=== PATIENT | male | born 1990 | race Caucasian/White ===

== ENCOUNTER 2022-05-08 14:59 | Inpatient (IN) | payer MEDICAID, SELFPAY ==
[2022-05-08 15:01] VITALS: BP 133/106; PULSE 95; RESP 18; TEMP 35.7; O2SAT 96; BMI 21.4
[2022-05-08 15:26] LABS: Absolute Lymphocyte Count 2.39 X10^3/uL (0.83-4.51); Absolute Neutrophil Count 3.8 X10^3/uL (2.0-7.7); Basophil% 1.5 % (0-1); Eosinophil# 0.06 X10^3/uL; Eosinophils% 0.9 % (0-5); Hematocrit 35.9 % (40-54); Hemoglobin 12.2 g/dL (13.0-16.5); Lymphocyte # 2.39 X10^3/ul (0.83-4.51); Lymphocyte % 34.8 % (19-41); Mean Corpuscular Hgb 37.4 pg (27.0-32.0); Mean Corpuscular Volume 110.1 fL (80-94); Mean Platelet Vol. 9.5 fl (6.2-12.0); Monocyte# 0.45 X10^3/uL; Monocyte% 6.6 % (0-10); NRBC Flagged by Analyzer 0 % (0-5); Neutrophil # 3.82 X10^3/uL (2.7-7.7); Neutrophil % 55.6 % (47-70); POSITIVE MORPHOLOGY YES; Platelet Count 170 K/mm3 (150-450); RBC Distribution Width CV 16.6 % (11.6-14.6); RBC Distribution Width SD 67.7 fl (35.1-43.9); Red Blood Count 3.26 M/mm3 (4.6-6.2); White Blood Count 6.9 K/mm3 (4.4-11.0)
[2022-05-08 15:28] LABS: Differential Indicated SCAN CRITERIA MET
--- NOTE | 2022-05-08 15:34 | EDS_ITS ---
HPI History of Present Illness Chief Complaint: ETOH Intox Narrative Narrative: 30-year-old male with history of cirrhosis and alcohol abuse presenting for EtOH detox. Patient states that he was seen about a week and a half ago and he had a CT scan which showed ascites but not enough for paracentesis which she had previously performed about 2 weeks ago. Patient states that he continues to drink and varying levels of alcohol. Sometimes a few beers. Sometimes at the fifth of whiskey. There is a lot of variability of pain. He states that sometimes present he feels nearly satiety. Patient states he is not vomiting. He states his abdomen is distended it is about where it was when he last had his labs and CAT scan. This was at [facility]. He states he previously was seen at [place] and went to [facility]. He went for a second opinion. He states that his. Bilirubin and liver function enzymes have been going down previously. He has a history of pancreatitis as well. He recently had an ultrasound of the right upper quadrant which showed some gallstones but no evidence of cholecystitis. Patient does state however he is still on ciprofloxacin which they gave him at his last paracentesis. He states he never received his lab work for the paracentesis but they did send this to the lab. Patient also [facility] He has been told he will get a referral to a GI specialist/home care chaplain in [place] but he is awaiting this. [facility] Home Medications NK 05/08/22 [History Last Taken Unknown] Allergy/AdvReac Type Severity Reaction Status Date / Time Penicillins [PCN] Allergy Hives Verified 05/08/22 15:01 Social History Smoking Status: Current every day smoker tobacco type: cigarettes ROS ROS ED Constitutional Constitutional ED: Denies chills or fever(s) Eyes Eyes: Denies change in vision or diplopia ENT ENT ED: Denies rhinorrhea or sore throat Cardiovascular Cardiovascular: Denies chest pain or palpitations Respiratory/Chest Respiratory/Chest: Denies cough or dyspnea Gastrointestinal Gastrointestinal: Reports abdominal pain, constipation and nausea; Denies melena Genitourinary Genitourinary ED: Denies dysuria Musculoskeletal Musculoskeletal: Denies arthralgias or back pain Integumentary Denies abscess or Abrasions Neurologic Neurologic: Denies headache(s) or paresthesias Psychiatric Psychiatric: Denies anxiety or depression EXAM Physical Exam Const Vital Signs: 05/08/22 15:01 Temperature 96.2 F L Temperature Source Temporal Pulse Rate 95 Respiratory Rate 18 Blood Pressure 133/106 H Blood Pressure Mean 115 Pulse Ox 96 Oxygen Delivery Method Room Air Positive well nourished General Appearance ED: NAD; Negative for pallor HEENT Reports moist mucous membranes atraumatic Eyes PERRL and EOMs intact bilaterally General Eye ED: Yes scleral icterus Neck no lymphadenopathy Resp normal respiratory effort and clear to auscultation bilaterally Auscultation: Negative for rales, rhonchi or wheezes Cardio regular rate and regular rhythm GI Inspection: abdominal distention Palpation: Negative for guarding, rigid or mass Neuro oriented x3 and CN's II-XII intact bilaterally Psych mental status grossly normal Skin General Skin Exam: jaundice; Negative for pallor MDM MDM MDM Narrative Medical decision making narrative: Review of the medical record on [facility] shows that the patient did get seen 05/05/2022 at [facility]. The CT of the abdomen with IV contrast is below. It shows cirrhosis and underlying portal hypertension. It showed moderate ascites with no significant interval changes from previous CT on 04/26/2022. PT and INR on 05/05/2022 14.3/1.10. PTT 28.0. CBC showed a white blood cell count of 3.9, hemoglobin 12.3, hematocrit 5.8, platelets 136 and then he came back. CMP showed a total bilirubin of 2.3, direct bilirubin 1.2 AST 60, alkaline phosphatase 188. Lipase 87 ALT within normal limits. Sodium 139, potassium 3.4, chloride 103, he has calcium 8.2, total protein 5.7, albumin 2.5. Creatinine 0.76. BUN less than 5. Magnesium is 1.7. Today patient's blood work shows his white blood cell count of 6.9. Hemoglobin 12.2. Hematocrit 35.9. Platelets 170. Renal function is normal. Electrolytes are normal. Lipase slightly elevated at 497. Bilirubin slightly elevated 1.5, AST 67, ALT 35, alkaline phosphatase 207. INR within normal limits. This appears to be improving. EtOH 342. Urine tox screen positive for cannabinoids. CT of the abdomen pelvis shows ascites and some fluid around the gallbladder. Patient does not have specific tenderness here. He is more complaining of abdominal distention. I do not think he has acute cholecystitis. His LFTs are normalizing and his white count is normal. Patient still request to be admitted for detox. I spoke with the hospitalist for admission. Impression: 1. EtOH abuse 2. Presentation for EtOH detox 3. Elevated lipase 4. History of cirrhosis Lab Data Attestation: I reviewed the patient's lab results. Labs: Laboratory Results - last 24 hr 05/08/22 05/08/22 05/08/22 15:15 15:15 15:15 WBC 6.9 RBC 3.26 L Hgb 12.2 L Hct 35.9 L MCV 110.1 H MCH 37.4 H MCHC 34.0 RDW Std Deviation 67.7 H RDW Coeff of Yossi 16.6 H Plt Count 170 MPV 9.5 Immature Gran % (Auto) 0.600 Neut % (Auto) 55.6 Lymph % (Auto) 34.8 [place] % (Auto) 6.6 Eos % (Auto) 0.9 Baso % (Auto) 1.5 H Absolute Neuts (auto) 3.8 Absolute Lymphs (auto) 2.39 Nucleated RBC % 0 Platelet Estimate ADEQUATE RBC Morphology N CHROM Anisocytosis 2+ Macrocytosis 2+ PT INR Sodium 140 Potassium 4.2 Chloride 102 Carbon Dioxide 31.0 Anion Gap 7 BUN 4 L Creatinine 0.68 L Estim Creat Clear Calc 135.81 Est GFR (MDRD) Af Amer 171 Est GFR (MDRD) Non-Af 141 BUN/Creatinine Ratio 5.8 L Glucose 106 Calcium 8.3 L Total Bilirubin 1.50 H AST 67 H ALT 35 Alkaline Phosphatase 207 H Total Protein 6.6 Albumin 2.6 L Globulin 4.0 Albumin/Globulin Ratio 0.6 L Lipase Urine Opiates Screen Urine Methadone Screen Ur Barbiturates Screen Ur Phencyclidine Scrn Ur Amphetamines Screen MDMA (Ecstasy) Screen U Benzodiazepines Scrn Urine Cocaine Screen U Cannabinoids Screen Ur Drug Screen Comment Ethyl Alcohol 342.0 H* 05/08/22 05/08/22 05/08/22 15:15 15:35 15:39 WBC RBC Hgb Hct MCV MCH MCHC RDW Std Deviation RDW Coeff of Yossi Plt Count MPV Immature Gran % (Auto) Neut % (Auto) Lymph % (Auto) [place] % (Auto) Eos % (Auto) Baso % (Auto) Absolute Neuts (auto) Absolute Lymphs (auto) Nucleated RBC % Platelet Estimate RBC Morphology Anisocytosis Macrocytosis PT 13.0 INR 1.0 Sodium Potassium Chloride Carbon Dioxide Anion Gap BUN Creatinine Estim Creat Clear Calc Est GFR (MDRD) Af Amer Est GFR (MDRD) Non-Af BUN/Creatinine Ratio Glucose Calcium Total Bilirubin AST ALT Alkaline Phosphatase Total Protein Albumin Globulin Albumin/Globulin Ratio Lipase 497 H Urine Opiates Screen NEGATIVE Urine Methadone Screen NEGATIVE Ur Barbiturates Screen NEGATIVE Ur Phencyclidine Scrn NEGATIVE Ur Amphetamines Screen NEGATIVE MDMA (Ecstasy) Screen NEGATIVE U Benzodiazepines Scrn NEGATIVE Urine Cocaine Screen NEGATIVE U Cannabinoids Screen POSITIVE H Ur Drug Screen Comment Ethyl Alcohol Radiography Diagnostic Testing: Clinical Impression(s) from Imaging Studies Abdomen/Pelvis CT 05/08/22 15:34 IMPRESSION: (NOT LISTED IN ORDER OF SIGNIFICANCE) No visible gallstones. However, there is gallbladder wall thickening and pericholecystic fluid this may be related to ascites. Hepatic cirrhosis. Ascites. Other findings as above. Electronically Signed: Atul Blood MD at 16:00 EDT , CT ABDOMEN/PELVIS WITH CONTRAST CT ABDOMEN AND PELVIS WITH IV CONTRAST - 05/05/2022 COMPARISON: CT abdomen and pelvis with IV contrast dated 04/26/2022 and 02/16/2022. HISTORY: Abdominal pain, acute, nonlocalized. TECHNIQUE: Helical imaging was performed from the hemidiaphragms through the pubic symphysis after the administration of nonionic intravenous contrast (75 mL Omnipaque 350). No oral contrast was given. Multiplanar reconstructions were created. Dose reduction techniques were achieved by using: automated exposure control and/or adjustment of mA and/or kV according to patient size and/or use of iterative reconstruction technique. FINDINGS: CT ABDOMEN: The heart is normal in size. The abdominal aorta is normal in caliber. The lung bases are clear. No pleural effusion is identified. There is a moderate amount of ascites, which is not significantly changed. Again seen is asymmetric enlargement of the lateral segment of the left lobe of the liver and caudate lobe and subtle nodular surface contour of the liver. Liver is normal in size. Collateral vessels are also again noted in the gastrohepatic ligament and around the distal esophagus. The main portal vein and splenic vein are normal in caliber and patent. The spleen is borderline enlarged, measuring 4.1 x 10.5 x 11.8 cm. No focal splenic or hepatic lesions are identified. No calcified gallstones or biliary ductal dilatation is identified. Mild infiltrative changes are again seen around the pancreas, similar to the prior study. The pancreas demonstrates normal enhancement with no underlying mass or cyst. No significant abnormality is identified in the adrenal glands or kidneys. No hydronephrosis or perinephric infiltrative changes are identified. No dilated bowel loops or evidence of a bowel obstruction. Mild mural thickening of the ascending colon again noted, likely related to surrounding ascites and underlying hepatobiliary disease. No convincing evidence of a colitis. No free intraperitoneal gas, pneumatosis intestinalis, or lymphadenopathy is identified. CT PELVIS: A moderate amount of ascites is again noted, grossly unchanged. No mass or lymphadenopathy is identified. The appendix is identified and there is no evidence of an appendicitis. The bladder is not optimally evaluated due to lack of distention. The prostate is normal in size. No osseous abnormality is identified. IMPRESSION: 1. Morphologic changes in the liver again seen concerning for cirrhosis along with findings concerning for underlying portal hypertension, including collateral vessels in the gastrohepatic ligament and small distal esophageal varices. Borderline splenomegaly again noted. 2. Moderate ascites, unchanged. 3. Nonspecific mild infiltrative changes again seen surrounding the pancreas, could be related to edema or mild pancreatitis. Similar changes were seen on the prior study. No evidence of pancreatic necrosis. 4. No new process is seen as compared to the 04/26/2022 CT. Discharge Plan Triage Chief Complaint: ETOH Intox Other Complaint: Substance Abuse ED Provider: Ted Julien Dx/Rx/DC Orders Primary Care Provider: [facility]
--- NOTE | 2022-05-08 15:34 | CT_ITS ---
STUDY: CT Abdomen And Pelvis W/O Contrast Injection 05/08/2022 3:57 PM REASON FOR EXAM: Male, 31 years old. ABDOMINAL PAIN abdominal pain alcohol abuse. Substance abuse. TECHNIQUE: Transaxial images were obtained without oral contrast, and without intravenous contrast. Individualized dose optimization techniques were used for this CT. COMPARISON: None. FINDINGS: The visualized lung bases are unremarkable. The visualized portions of the heart are within normal limits. There is a diffuse contour abnormality of the liver consistent with cirrhotic changes. No visible gallstones. However, there is gallbladder wall thickening and pericholecystic fluid this may be related to ascites. Unremarkable spleen. Unremarkable pancreas. Recanalization of the umbilical vein. Perihepatic ascites. Unremarkable bilateral adrenal glands. No acute findings of the right kidney. No acute findings of the left kidney. Unremarkable visualized stomach. Unremarkable small intestine. Unremarkable colon. The appendix is visualized and appears unremarkable. There are no acute findings of the abdominal aorta. Unremarkable inferior vena cava. Subcentimeter mesenteric lymph nodes. Unremarkable urinary bladder. Unremarkable abdominal wall. Unremarkable osseous structures. CT/Abdomen/Pelvis without Cont IMPRESSION: (NOT LISTED IN ORDER OF SIGNIFICANCE) No visible gallstones. However, there is gallbladder wall thickening and pericholecystic fluid this may be related to ascites. Hepatic cirrhosis. Ascites. Other findings as above. Electronically Signed: Atul Blood MD at 16:00 EDT ,
[2022-05-08 15:57] LABS: Amphetamine Urine VISTA NEGATIVE (<1000 ng/mL); Barbiturate Urine VISTA NEGATIVE (< 200 ng/mL); Benzodiazepine Urine VISTA NEGATIVE (< 200 ng/mL); Cocaine Urine VISTA NEGATIVE (< 300 ng/mL); Ecstacy Urine VISTA NEGATIVE (< 500 ng/mL); Methadone Urine VISTA NEGATIVE (< 300 ng/mL); PCP Urine VISTA NEGATIVE (< 25 ng/mL); THC Urine VISTA POSITIVE (< 50 ng/mL); Vista UDS pH Range 8
[2022-05-08 16:04] LABS: Platelet Estimate ADEQUATE (ADEQ); Red Cell Morphology N CHROM NORMAL (NORM C&C)
[2022-05-08 16:05] LABS: Anisocytosis 2+
[2022-05-08 16:06] LABS: Macrocytosis 2+
[2022-05-08 16:07] LABS: ALB/GLOB Ratio 0.6 RATIO (0.9-2.4); AST(SGOT) 67 U/L (15-37); Alanine Aminotransfer ALT/SGPT 35 U/L (16-61); Albumin, Serum 2.6 g/dL (3.2-5.0); Alkaline Phosphatase 207 U/L (45-117); Anion Gap 7 (5-15); BUN 4 mg/dL (7-18); BUN/Creat Ratio 5.8 RATIO (10-20); Calcium,Total 8.3 mg/dL (8.5-10.1); Chloride 102 mmol/L (98-107); Creatinine, Serum 0.68 mg/dL (0.70-1.30); EST Glomerular Filtration Rate 141 mL/min (>60); Est Glom Filt Rate - Afr Amer 171 mL/min (>60); Estimated Creatinine Clearance 135.81 ml/min; Glucose 106 mg/dL (74-106); Potassium 4.2 mmol/L (3.5-5.1); Protein, Total 6.6 g/dL (6.4-8.2); Sodium Level 140 mmol/L (136-145)
[2022-05-08 16:21] LABS: Lipase 497 U/L (73-393)
--- NOTE | 2022-05-08 16:46 | NURSING ---
MED SURG TERELETSKY ETOH DETOX
[2022-05-08 17:33] VITALS: BP 127/90; PULSE 83; RESP 18; TEMP 36.9; O2SAT 96
[2022-05-08 17:35] VITALS: BMI 20.5
[2022-05-08 17:44] VITALS: BP 127/90; PULSE 83; RESP 18; TEMP 36.9; O2SAT 96
[2022-05-08] MEDS: Phenobarbital 32.4 MG Tablet 64.8 MG PO ×2 (18:32→22:17)
--- NOTE | 2022-05-08 18:32 | HP.PCM_ITS ---
Documented by User: CORRINE Messer 05/08/22 18:51 HPI - General General Date of Admission: 05/08/22 Date of Service: 05/08/22 Chief Complaint: ETOH detox HPI Narrative FERN CRUZ, is a 31 M who presents with desire to detox. Patient has cirrhosis and underwent paracentesis approximately 2 weeks ago. Patient continues to drink alcohol which he states varies between a few beers and sometimes 1/5 of whiskey. Patient states that he is also having abdominal pain. Patient typically seeks medical care at [facility] in [place]. Patient states that he is currently taking ciprofloxacin which I gave him following his last paracentesis. Patient came in today with desire to go through detoxification from alcohol however on arrival he is acutely intoxicated with an EtOH of 342 as well as a positive tox screen for cannabinoids. Of note patient also has elevated lipase level as well as elevated LFTs. [facility] Medical History Alcohol abuse Anxiety Asthma Chronic pain Cirrhosis Pancreatitis PTSD (post-traumatic stress disorder) Smoker Home Medications ciprofloxacin HCl 500 mg tablet 500 mg PO BID recent paracentesis 05/08/22 [History Last Taken Unknown] Allergy/AdvReac Type Severity Reaction Status Date / Time Penicillins [PCN] Allergy Hives Verified 05/08/22 15:01 Social History (Updated 05/08/22 @ 18:38 by Stephanie Urena NP-C) Smoking Status: Current every day smoker tobacco type: cigarettes alcohol intake: current alcohol intake frequency: 3 or more drinks per day Alcohol type: beer and hard liquor ROS Constitutional Constitutional: Reports chills and malaise; Denies anorexia, fatigue, fever(s) or weakness Cardiovascular Cardiovascular: Denies chest pain, edema, palpitations or syncope Respiratory/Chest Respiratory/Chest: Reports wheezing; Denies cough, shortness of breath at rest or shortness of breath with exertion Gastrointestinal Gastrointestinal: Reports abdominal pain; Denies constipation, diarrhea, nausea or vomiting Genitourinary Genitourinary: Denies dysuria Musculoskeletal Musculoskeletal: Denies back pain, extremity pain or joint pain Integumentary Integumentary: Denies dry skin Neurologic Neurologic: Denies abnormal gait, abnormal speech, confusion or dizziness Psychiatric Psychiatric: Denies anxiety or depression Endocrine Endocrinology: Denies change in body appearance Hematologic/Lymphatic Hematologic/Lymphatic: Denies anemia Vital Signs Vital Signs Vital Signs: 05/08/22 15:01 05/08/22 17:33 05/08/22 17:44 Temperature 96.2 F L 98.5 F 98.5 F Temperature Source Temporal Oral Oral Pulse Rate 95 83 83 Respiratory Rate 18 18 18 Blood Pressure 133/106 H 127/90 H 127/90 H Blood Pressure Mean 115 102 102 Blood Pressure Source Monitor Blood Pressure Position Semi-Fowlers Blood Pressure Location Right Arm Pulse Ox 96 96 96 Oxygen Delivery Method Room Air Room Air Room Air Weight Weight: 131 lb 2.801 oz Body Mass Index (BMI) 20.5 Physical Exam Const alert, oriented x3 and no apparent distress General Appearance: cooperative HEENT normocephalic and head/scalp atraumatic Eyes conjunctivae normal and no scleral icterus Neck no lymphadenopathy and supple General: trachea midline Lymph Lymphatic: no lymphadenopathy noted Resp normal respiratory effort, normal air movement and clear to auscultation bilaterally Auscultation: wheezes scattered wheezes and throughout Cardio regular rate, regular rhythm, S1 normal heart sound and S2 normal heart sound GI Inspection: abdominal distention Palpation: firm and tender other (generalized) Extremity normal capillary refill General Extremity: edema bilateral lower extremity Details: moderate Skin General Skin Exam: no breakdown Lesions: no lesions Rashes: no rashes Neuro no focal motor deficits and no sensory deficits noted Speech: speech normal Psych thought process normal, cooperative and affect normal Results Lab / Micro Data Result Diagrams: 05/08/22 15:15 05/08/22 15:15 Labs: Laboratory Results - last 24 hr 05/08/22 15:15: WBC 6.9, RBC 3.26 L, Hgb 12.2 L, Hct 35.9 L, MCV 110.1 H, MCH 37.4 H, MCHC 34.0, RDW Std Deviation 67.7 H, RDW Coeff of Yossi 16.6 H, Plt Count 170, MPV 9.5, Immature Gran % (Auto) 0.600, Neut % (Auto) 55.6, Lymph % (Auto) 34.8, [place] % (Auto) 6.6, Eos % (Auto) 0.9, Baso % (Auto) 1.5 H, Absolute Neuts (auto) 3.8, Absolute Lymphs (auto) 2.39, Nucleated RBC % 0, Platelet Estimate ADEQUATE, RBC Morphology N CHROM, Anisocytosis 2+, Macrocytosis 2+ 05/08/22 15:15: Sodium 140, Potassium 4.2, Chloride 102, Carbon Dioxide 31.0, Anion Gap 7, BUN 4 L, Creatinine 0.68 L, Estim Creat Clear Calc 135.81, Est GFR (MDRD) Af Amer 171, Est GFR (MDRD) Non-Af 141, BUN/Creatinine Ratio 5.8 L, Gluc ose 106, Calcium 8.3 L, Total Bilirubin 1.50 H, AST 67 H, ALT 35, Alkaline Phosphatase 207 H, Total Protein 6.6, Albumin 2.6 L, Globulin 4.0, Albumin/Globulin Ratio 0.6 L 05/08/22 15:15: Ethyl Alcohol 342.0 H* 05/08/22 15:15: Lipase 497 H 05/08/22 15:35: PT 13.0, INR 1.0 05/08/22 15:39: Urine Opiates Screen NEGATIVE, Urine Methadone Screen NEGATIVE, Ur Barbiturates Screen NEGATIVE, Ur Phencyclidine Scrn NEGATIVE, Ur Amphetamines Screen NEGATIVE, MDMA (Ecstasy) Screen NEGATIVE, U Benzodiazepines Scrn NEGATIVE, Urine Cocaine Screen NEGATIVE, U Cannabinoids Screen POSITIVE H, Ur Drug Screen Comment Radiology Impression Abdomen/Pelvis CT 05/08/22 15:34 IMPRESSION: (NOT LISTED IN ORDER OF SIGNIFICANCE) No visible gallstones. However, there is gallbladder wall thickening and pericholecystic fluid this may be related to ascites. Hepatic cirrhosis. Ascites. Other findings as above. Electronically Signed: Atul Blood MD at 16:00 EDT Reading Location ID and State: [facility] / [place] , Service support , Assessment & Plan Assessment/Plan (1) Alcohol abuse: (2) Desire for detoxification: PLAN: Plan 1. Desire to detox from alcohol -Admit to MedSurg -Phenobarbital table ordered per protocol -Supportive medications ordered per protocol 2. Cirrhosis of the liver -Patient currently undergoing care at [facility] in [place] -Labs elevated but improved from patient's prior labs -Patient had paracentesis 2 weeks ago and is currently on ciprofloxacin, will continue -Patient initiated on spironolactone due to lower extremity swelling secondary to cirrhosis 3. Tobacco abuse -Nicotine patch ordered 4. Elevated lipase -CT demonstrates mild infiltrative changes again seen surrounding the pancreas. Similar changes were seen on prior study -Patient had pancreatitis 2 weeks ago -CMP daily, trend DVT prophylaxis-not indicated, encourage ambulation This patient was seen by CORRINE Messer under the supervision of Dr. Freedman. 28 minutes spent in clinical coordination of patient's plan of care. Documented by User: Dr. Charles Freedman DO 05/08/22 19:06 HPI - General General Date of Admission: 05/08/22 [facility] Medical History Alcohol abuse Anxiety Asthma Chronic pain Cirrhosis Pancreatitis PTSD (post-traumatic stress disorder) Smoker Home Medications ciprofloxacin HCl 500 mg tablet 500 mg PO BID recent paracentesis 05/08/22 [History Last Taken Unknown] Allergy/AdvReac Type Severity Reaction Status Date / Time Penicillins [PCN] Allergy Hives Verified 05/08/22 15:01 Social History (Updated 05/08/22 @ 18:38 by Stephanie Urena NP-C) Smoking Status: Current every day smoker tobacco type: cigarettes alcohol intake: current alcohol intake frequency: 3 or more drinks per day Alcohol type: beer and hard liquor Results Lab / Micro Data Result Diagrams: 05/08/22 15:15 05/08/22 15:15 Assessment & Plan Assessment/Plan (1) Alcohol abuse: (2) Desire for detoxification: Charges/Coding Addendum Addendum: Patient was seen and examined independently of Lynette Urena, he came to the ER requesting services for alcohol detox. Patient has a long history of alcoholism, he states he was clean while he was in group home for 4 years, he was released from group home in 2019, he began drinking 4 months later and has been drinking ever since. Patient states he first started drinking was 12 years old, he drinks about a 12 pack a day of beer or a pint of whiskey a day. Patient has no symptoms of withdrawal at the present time, blood alcohol level was elevated in the emergency room. Patient undergoes paracentesis periodically for ascites, his last paracentesis was last , he was placed on Cipro for 2 weeks following this paracentesis. Patient is not on any medication such as spironolactone or metoprolol. He gets some of his [facility] from the [facility]. On examination he appeared in good health and spirits. Vital signs as documented. Skin warm and dry and without overt rashes. Neck without JVD, neck was supple, trachea midline, thyroid was normal. Lungs clear bilaterally, normal air movement was noted. Heart exam notable for regular rhythm, normal sounds and absence of murmurs, rubs or gallops. Abdomen unremarkable and without evidence of organomegaly, masses, or abdominal aortic enlargement. Bowel sounds are present, abdomen is mildly distended. Extremities-patient has significant pedal edema bilaterally, no cyanosis was noted, no clubbing was noted. Neuro: Cranial nerves II through XII are grossly intact, no focal motor deficits were noted, sensation to light touch and pinprick intact, motor exam 5/5 throughout. Psych: Patient is alert and oriented x3, he does not appear anxious or depressed, he does not appear agitated. #1 alcohol intoxication requesting services for alcohol detox-patient will be admitted to [facility], he will be seen by addiction criminal justice social worker, patient was placed on phenobarbital per the alcohol detox order set. #2 chronic alcoholism-complicates care, management, recovery, and prognosis #3 chronic alcoholic cirrhosis-complicates care, management, recovery, and prognosis, patient states he does not have a custodian blood bank that he follows with, again patient underwent a paracentesis last . Overall prognosis is extremely guarded due to the patient's young age and the presence of cirrhosis. I have reviewed Lynette Urena's history and physical including her medical assessment and plan of care and with the above additions endorse it. Total clinical time spent by myself addressing the patient's medical issues, reviewing the data, and collaborating with patient's care team: 45 minutes Visit Charges Inpatient E&M: 63351 Init Hosp L3
[2022-05-08] MEDS: Spironolactone 50 MG Tablet PO (19:00)
[2022-05-08 22:09] VITALS: BP 123/83; PULSE 94; RESP 16; TEMP 37.4; O2SAT 94
[2022-05-08] MEDS: traZODone 100 MG Tablet PO (22:17)
[2022-05-08] MEDS: Ciprofloxacin 500 MG Tablet PO (22:17)
[2022-05-09] VITALS (10 sets, daily range): BP systolic 125–143; BP diastolic 91–100; PULSE 66–89; RESP 16–19; TEMP 36.8–37.5; O2SAT 94–100
[2022-05-09] MEDS: Phenobarbital 32.4 MG Tablet 64.8 MG PO ×6 (02:12→21:59)
[2022-05-09] MEDS: Ondansetron 8 MG Tablet PO (06:10)
[2022-05-09] MEDS: 0.9% Saline Lock 10 ML Syringe IV (06:10)
[2022-05-09] MEDS: hydrOXYzine PAM 25 MG Capsule 50 MG PO ×2 (06:10→18:07)
[2022-05-09] MEDS: Spironolactone 50 MG Tablet PO (09:06)
[2022-05-09] MEDS: Thiamine Hydrochloride 100 MG Tablet PO (09:06)
[2022-05-09] MEDS: Ciprofloxacin 500 MG Tablet PO ×2 (09:06→22:00)
[2022-05-09] MEDS: Folic Acid 1 MG Tablet PO (09:06)
[2022-05-09] MEDS: Gabapentin 300 MG Capsule PO ×2 (09:06→22:01)
--- NOTE | 2022-05-09 10:44 | ADDICTION ---
This promotion writer met with PT to conduct ASAM, MSE, AUDIT, DUDIT assessments and to plan for d/c. PT A+Ox4 and participated actively. All assessments completed and placed in PT's chart. [facility] [place] PT did not indicate a need for transportation post d/c from [facility].
[2022-05-09] MEDS: Ipratropium/Albuterol Sulfate 3 ML AMPUL.NEB INHALATION ×2 (12:03→19:21)
--- NOTE | 2022-05-09 12:37 | PN.HOSP_ITS ---
Subjective Subjective Patient admitted yesterday afternoon with last drink being yesterday. Reports he feels some internal anxiety and tremor but mild but no other significant symptoms at this time. Patient admits has never been through detox previously. Had his first paracentesis about 1 week ago related to liver disease from [facility]. Was placed on ciprofloxacin 500 mg p.o. twice daily after his paracentesis. Objective Data Objective Data Vital Signs: Vital Signs Temp Pulse Resp BP Pulse Ox O2 Del Method 98.7 F 69 17 137/98 H 97 Room Air 05/09/22 10:00 05/09/22 12:04 05/09/22 12:04 05/09/22 10:00 05/09/22 10:00 05/09/22 10:00 Oxygen Delivery Method Room Air Weight: 59.5 kg Body Mass Index (BMI) 20.5 Intake & Output: Intake and Output for Last 24 Hours 05/07/22 05/08/22 05/09/22 23:59 23:59 23:59 Intake Total 200 / 200 Balance 200 / 200 Lab / Micro Data Result Diagrams: 05/08/22 15:15 05/08/22 15:15 Labs: Laboratory Results - last 24 hr 05/08/22 15:15: WBC 6.9, RBC 3.26 L, Hgb 12.2 L, Hct 35.9 L, MCV 110.1 H, MCH 37.4 H, MCHC 34.0, RDW Std Deviation 67.7 H, RDW Coeff of Yossi 16.6 H, Plt Count 170, MPV 9.5, Immature Gran % (Auto) 0.600, Neut % (Auto) 55.6, Lymph % (Auto) 34.8, Hays % (Auto) 6.6, Eos % (Auto) 0.9, Baso % (Auto) 1.5 H, Absolute Neuts (auto) 3.8, Absolute Lymphs (auto) 2.39, Nucleated RBC % 0, Platelet Estimate ADEQUATE, RBC Morphology N CHROM, Anisocytosis 2+, Macrocytosis 2+ 05/08/22 15:15: Sodium 140, Potassium 4.2, Chloride 102, Carbon Dioxide 31.0, Anion Gap 7, BUN 4 L, Creatinine 0.68 L, Estim Creat Clear Calc 135.81, Est GFR (MDRD) Af Amer 171, Est GFR (MDRD) Non-Af 141, BUN/Creatinine Ratio 5.8 L, Gluco se 106, Calcium 8.3 L, Total Bilirubin 1.50 H, AST 67 H, ALT 35, Alkaline Phosphatase 207 H, Total Protein 6.6, Albumin 2.6 L, Globulin 4.0, Albumin/Globulin Ratio 0.6 L 05/08/22 15:15: Ethyl Alcohol 342.0 H* 05/08/22 15:15: Lipase 497 H 05/08/22 15:35: PT 13.0, INR 1.0 05/08/22 15:39: Urine Opiates Screen NEGATIVE, Urine Methadone Screen NEGATIVE, Ur Barbiturates Screen NEGATIVE, Ur Phencyclidine Scrn NEGATIVE, Ur Amphetamines Screen NEGATIVE, MDMA (Ecstasy) Screen NEGATIVE, U Benzodiazepines Scrn NEGATIVE, Urine Cocaine Screen NEGATIVE, U Cannabinoids Screen POSITIVE H, Ur Drug Screen Comment Radiography Diagnostic Testing: Radiology Impression Abdomen/Pelvis CT 05/08/22 15:34 IMPRESSION: (NOT LISTED IN ORDER OF SIGNIFICANCE) No visible gallstones. However, there is gallbladder wall thickening and pericholecystic fluid this may be related to ascites. Hepatic cirrhosis. Ascites. Other findings as above. Electronically Signed: Atul Blood MD at 16:00 EDT Reading Location ID and State: [facility] / [place] , Service support , Physical Exam Const alert, oriented x3, no apparent distress, average body habitus and well nourished Constitutional Narrative: Young white male lying in bed, appears comfortable nontoxic HEENT head/scalp atraumatic, moist oral mucous membranes and oropharynx normal HEENT Narrative: Mallampati 2, no thrush, dentition is fair for age Resp normal respiratory effort, no retractions, no use of accessory muscles and clear to auscultation bilaterally Auscultation: Negative for crackles, rales, rhonchi or wheezes Cardio regular rate, regular rhythm, S1 normal heart sound, S2 normal heart sound, no murmurs, no rub, no gallops, no clicks and no JVD GI normal to inspection, nondistended, normoactive bowel sounds, soft to palpation and non-tender Extremity no clubbing, cyanosis or edema Extremity Narrative: 2+ pedal pulses Neuro oriented x3, moves all extremities and no focal motor deficits Neuro Narrative: No asterixis, fine tremor noted Speech: speech normal Assessment & Plan Assessment/Plan (1) Alcohol abuse: (2) Desire for detoxification: (3) Hyperbilirubinemia: (4) Alcoholic hepatitis: PLAN: Plan Acute alcohol withdrawal -Patient with long history of abuse -Currently drinking a few beers and about 1/5 of whiskey daily -Patient acutely intoxicated on presentation with an alcohol level of 342 -Continue phenobarbital taper -Continue thiamine and folate -Continue supportive medications -180 consultation Liver cirrhosis/alcoholic hepatitis -Doubt need for steroids at this time -Liver enzymes improving -Recent paracentesis done at [facility] in [place]--> placed on prophylactic Cipro following -This was his first paracentesis of her -Meld score is 4.3/child Dasilva score is 8 (class B) -Continue to monitor abdomen and may schedule Lasix prior to discharge depending on clinical exam and GI recommendations -Will likely need EGD in the future -Strongly encouraged ongoing alcohol cessation -Aldactone initiated -GI consult pending Lipase elevation -CT of the abdomen pelvis demonstrated with some infiltrative changes around the pancreas with similar to previous studies -Patient with recent pancreatitis -Elevation is mild -No need for n.p.o. status -Patient without any current nausea/vomiting/abdominal pain -Gallbladder ultrasound shows some distention with no stones Tobacco abuse -Recommend cessation -Nicotine replacement therapy available DVT prophylaxis -Low risk -Early ambulation encouraged Charges/Coding Visit Charges Inpatient E&M: 86137 Subs Hosp L2
[2022-05-09] MEDS: traZODone 100 MG Tablet PO (22:01)
[2022-05-10] VITALS (9 sets, daily range): BP systolic 104–147; BP diastolic 82–100; PULSE 67–87; RESP 14–19; TEMP 36.9–37.2; O2SAT 94–98
[2022-05-10] MEDS: Phenobarbital 32.4 MG Tablet 64.8 MG PO ×6 (02:46→22:35)
[2022-05-10] MEDS: Ipratropium/Albuterol Sulfate 3 ML AMPUL.NEB INHALATION ×2 (07:03→19:53)
[2022-05-10] MEDS: Spironolactone 50 MG Tablet PO (09:20)
[2022-05-10] MEDS: Ciprofloxacin 500 MG Tablet PO ×2 (09:20→21:50)
[2022-05-10] MEDS: Folic Acid 1 MG Tablet PO (09:20)
[2022-05-10] MEDS: Thiamine Hydrochloride 100 MG Tablet PO (09:20)
--- NOTE | 2022-05-10 09:42 | PN.HOSP_ITS ---
Subjective Subjective No issues overnight. Patient states his foot pain is better as is his anxiety and tremulousness. Was able to eat a complete breakfast without any issues this morning. Parish to follow-up as an outpatient with the [facility]. Objective Data Objective Data Vital Signs: Vital Signs Temp Pulse Resp BP Pulse Ox O2 Del Method 98.4 F 82 18 124/82 H 94 Room Air 05/10/22 09:12 05/10/22 09:12 05/10/22 09:12 05/10/22 09:12 05/10/22 09:12 05/10/22 09:16 Oxygen Delivery Method Room Air Weight: 59.5 kg Body Mass Index (BMI) 20.5 Intake & Output: Intake and Output for Last 24 Hours 05/08/22 05/09/22 05/10/22 23:59 23:59 23:59 Intake Total 200 / 200 Balance 200 / 200 Lab / Micro Data Result Diagrams: 05/08/22 15:15 05/08/22 15:15 Physical Exam Const alert, oriented x3, no apparent distress, average body habitus and well nourished Constitutional Narrative: Young white male lying in bed, appears comfortable and nontoxic General Appearance: cooperative HEENT normocephalic, head/scalp atraumatic, moist oral mucous membranes and oropharynx normal Resp normal respiratory effort, normal air movement, no retractions, no use of accessory muscles and clear to auscultation bilaterally Resp Narrative: Diminished but clear Auscultation: Negative for crackles, rales, rhonchi or wheezes Cardio regular rate, regular rhythm, S1 normal heart sound, S2 normal heart sound, no murmurs, no rub, no gallops and no clicks GI normal to inspection, nondistended, normoactive bowel sounds, soft to palpation and non-tender Extremity no clubbing, cyanosis or edema Extremity Narrative: 2+ pedal pulses Neuro oriented x3, moves all extremities, no focal motor deficits and no sensory deficits noted Neuro Narrative: No asterixis, tremor is resolving Speech: speech normal Psych affect normal Psych Narrative: Patient is appropriately interactive Assessment & Plan Assessment/Plan (1) Alcohol abuse: (2) Desire for detoxification: (3) Hyperbilirubinemia: (4) Alcoholic hepatitis: PLAN: Plan Acute alcohol withdrawal -Patient with long history of abuse -Currently drinking a few beers and about 1/5 of whiskey daily -Patient acutely intoxicated on presentation with an alcohol level of 342 -Continue phenobarbital taper -Continue thiamine and folate -Continue supportive medications -180 has evaluated the patient and the patient plans to follow-up with the [facility] after discharge Liver cirrhosis/alcoholic hepatitis -No need for steroids at this time -Liver enzymes improving -Recent paracentesis done at [facility] in [place]--> placed on prophylactic Cipro following -This was his first paracentesis -Meld score is 4.3/child Dasilva score is 8 (class B) -Will likely need EGD in the future as an outpatient -Strongly encouraged ongoing alcohol cessation -Aldactone initiated -Recommend outpatient GI follow-up at discharge Lipase elevation -CT of the abdomen pelvis demonstrated with some infiltrative changes around the pancreas with similar to previous studies -Patient with recent pancreatitis -Elevation is mild -Patient tolerating p.o. without any difficulty -Patient without any current nausea/vomiting/abdominal pain -Gallbladder ultrasound shows some distention with no stones Tobacco abuse -Recommend cessation -Nicotine replacement therapy available DVT prophylaxis -Low risk -Early ambulation encouraged Charges/Coding Visit Charges Inpatient E&M: 06940 Subs Hosp L2
--- NOTE | 2022-05-10 14:50 | CHAPLAIN ---
Type of Pastoral Visit _x__ Initial Visit ___ Follow-up Visit ___ On-call Visit ___ General Patient Visit ___ Spiritual Assessment ___ Family Conference ___ Bereavement ___ Rapid Response ___ Code Blue ___ Other (describe below) Pastoral Care Referral From _x__ Patient ___ Family ___ Nurse ___ Physician ___ Yacht Rigger ___ Syrup Maker Cook ___ Other (describe below) Sacrament/Intervention _x__ Active listening ___ Anointing ___ Spiritism ___ Bereavement ___ Communion ___ Chantale exploration ___ ___ Life review ___ Prayer ___ Reconciliation ___ Sacrament of Sick _x__ Supportive presence ___ Wedding ___ Other (describe below) Pastoral Comments patient welcomes the [employer] and states that he is feeling better than yesterday and is just tired; pt gives review of his hart to overcome alcohol addiction; pt has a supportive family that is always there for him; pt has and kids and I need to live for them; pt admits that he cannot just take a drink and think he is not going to continue drinking; pt welcomes a prayer for his recovery
[2022-05-10] MEDS: Gabapentin 300 MG Capsule PO (22:35)
[2022-05-10] MEDS: traZODone 100 MG Tablet PO (22:35)
[2022-05-11] MEDS: Phenobarbital 32.4 MG Tablet 64.8 MG PO ×2 (02:56→08:42)
[2022-05-11 02:58] VITALS: BP 115/83; PULSE 67; RESP 18; TEMP 36.6; O2SAT 96
[2022-05-11 03:02] VITALS: BP 115/83; PULSE 67; RESP 18; TEMP 36.6; O2SAT 96
[2022-05-11] MEDS: Ipratropium/Albuterol Sulfate 3 ML AMPUL.NEB INHALATION (07:26)
[2022-05-11 07:27] VITALS: PULSE 75; RESP 15; O2SAT 99
[2022-05-11 08:34] VITALS: BP 126/87; PULSE 76; RESP 18; TEMP 36.9; O2SAT 97
[2022-05-11] MEDS: Folic Acid 1 MG Tablet PO (08:37)
[2022-05-11] MEDS: Thiamine Hydrochloride 100 MG Tablet PO (08:37)
[2022-05-11] MEDS: Ciprofloxacin 500 MG Tablet PO (10:23)
[2022-05-11] MEDS: Spironolactone 50 MG Tablet PO (10:23)
--- NOTE | 2022-05-11 10:45 | PCM.DC.SUM ---
Providers Date of Admission: 05/08/22 Primary Care Physician: [facility] Reason For Visit: ALCOHOL DETOX Diagnosis Discharge Diagnosis (1) Alcohol abuse: Status: Acute Code(s): F10.10 - Alcohol abuse, uncomplicated (2) Desire for detoxification: Status: Acute (3) Hyperbilirubinemia: Status: Acute Code(s): E80.6 - Other disorders of bilirubin metabolism (4) Alcoholic hepatitis: Status: Acute Code(s): K70.10 - Alcoholic hepatitis without ascites Plan Acute alcohol withdrawal -Patient with long history of abuse -Currently drinking a few beers and about 1/5 of whiskey daily -Patient acutely intoxicated on presentation with an alcohol level of 342 -Continue phenobarbital taper -Continue thiamine and folate -Continue supportive medications -180 has evaluated the patient and the patient plans to follow-up with the [facility] after discharge Liver cirrhosis/alcoholic hepatitis -No need for steroids at this time -Liver enzymes improving -Recent paracentesis done at [facility] in [place]--> placed on prophylactic Cipro following -This was his first paracentesis -Meld score is 4.3/child Dasilva score is 8 (class B) -Will likely need EGD in the future as an outpatient -Strongly encouraged ongoing alcohol cessation -Aldactone initiated -Recommend outpatient GI follow-up at discharge Lipase elevation -CT of the abdomen pelvis demonstrated with some infiltrative changes around the pancreas with similar to previous studies -Patient with recent pancreatitis -Elevation is mild -Patient tolerating p.o. without any difficulty -Patient without any current nausea/vomiting/abdominal pain -Gallbladder ultrasound shows some distention with no stones Tobacco abuse -Recommend cessation -Nicotine replacement therapy available DVT prophylaxis -Low risk -Early ambulation encouraged Medications at Discharge Home Medications ciprofloxacin HCl 500 mg tablet 500 mg PO BID recent paracentesis 05/08/22 spironolactone 50 mg tablet 50 mg PO DAILY #30 tabs 05/11/22 Hospital Course Operations None Procedures None Summary of Care Provided Minutes Spent on Discharge: 33 Hospital Course: Mr. Butler is a 31-year-old white male who presented to the emergency department at [facility] on 05/08/2022 requesting detox from alcohol. The patient was recently diagnosed with cirrhosis and underwent a paracentesis approximately 1 to 2 weeks prior to presentation. He was placed on ciprofloxacin empirically after his paracentesis but was not told he had any positive cultures at that time. He indicated he was continuing to drink alcohol and it varied between a few beers to 1/5 of whiskey a day. He was complaining of some mild abdominal pain on presentation and has follow-up to see perforator typist at the [facility] and is awaiting information from the [facility] for timing of his appointment. Upon admission he was acutely intoxicated with an alcohol level of 342. His talk screen was also positive for cannabinoids. He had mildly elevated AST on admission at 67 with a bilirubin of 1.5 but his BMP was otherwise unremarkable, coags were normal, and CBC showed a mild anemia with a hemoglobin of 12.2. He was admitted to the medical floor and placed on a phenobarbital taper as well as thiamine and folate along with supportive medications for withdrawal symptoms. He did well throughout his hospital course. He was noted to be mildly edematous on presentation and was placed on Aldactone. He diuresed well with improvement in his swelling. We will maintain him on Aldactone at discharge and we have instructed him to follow-up with a BMP in the next 1 to 2 weeks by requesting this from the [facility]. He does not have a documented primary care physician and gets all of his care at the [facility]. A 1 month prescription was written for his Aldactone and he was instructed to continue what ever was left of his ciprofloxacin upon discharge. He was seen by 180 during his hospitalization and his plans are to follow-up at the [facility] for outpatient drug and alcohol rehab. He indicated that he has been through this program in the past and did well and had a longer period of sobriety but relapsed. He was discharged home in stable condition on 05/11/2022 and as noted above instructed to follow-up with a perforator typist at the [facility] as well as his primary care physician at the [facility]. Meld score was 4.3 and Micha Dasilva score is 8 (class B). Discharge diagnoses: Acute alcohol withdrawal Liver cirrhosis Mild alcoholic hepatitis Lipase elevation tobacco abuse History of pancreatitis Recent paracentesis Alcohol abuse Marijuana use Physical Exam Const alert, oriented x3, no apparent distress, average body habitus and well nourished Constitutional Narrative: Young white male lying in bed, appears comfortable and nontoxic General Appearance: cooperative, comfortable and well developed Orientation / Consciousness: awake, oriented to person, oriented to place and oriented to time Exam Limitations: no limitations HEENT normocephalic, head/scalp atraumatic, hearing grossly normal bilaterally, moist oral mucous membranes and oropharynx normal HEENT Narrative: Mallampati 2, dentition is fair, no thrush Eyes PERRL, EOMs intact bilaterally, conjunctivae normal and no scleral icterus Neck no lymphadenopathy and supple Neck Narrative: Trachea midline, no thyroid enlargement Resp normal respiratory effort, normal air movement, no retractions, no use of accessory muscles and clear to auscultation bilaterally Resp Narrative: Diminished but clear Auscultation: Negative for crackles, rales, rhonchi or wheezes Cardio regular rate, regular rhythm, S1 normal heart sound, S2 normal heart sound, no murmurs, no rub, no gallops, no clicks and no JVD GI normal to inspection, nondistended, normoactive bowel sounds, soft to palpation and non-tender Inspection: abdominal distention Palpation: firm and tender other (generalized) Extremity normal capillary refill and no clubbing, cyanosis or edema Extremity Narrative: 2+ pedal pulses General Extremity: edema bilateral lower extremity Details: moderate Skin no rashes or lesions noted, no wounds, skin turgor normal and no jaundice Skin Narrative: Multiple tattoos Neuro oriented x3, CN's II-XII intact bilaterally, moves all extremities, no focal motor deficits and no sensory deficits noted Neuro Narrative: No asterixis Speech: speech normal Psych thought process normal, cooperative and affect normal Psych Narrative: Patient is appropriately interactive Weight / BMI Weight Weight: 59.5 kg Body Mass Index (BMI) 20.5 ABG / Lab / Microbiology Data Result Diagrams: 05/08/22 15:15 05/08/22 15:15 D/C Instructions Discharge Diet: No restrictions (Restrict fluid intake to less than 2 L daily) and 4000 mg Sodium Diet Discharge Activity: Return to Normal Activity Meaningful Use Info Meaningful Use Diagnoses (Choose all that apply): None applicable Discharge Plan Admission Admit Date/Time: 05/08/22 17:04 Primary Reason for Your Visit: Alcohol detox Attending Provider: Brynn Ricks Primary Care Provider: [facility] Consulting Providers: Charles Freedman Instructions Additional Instructions / Restrictions: 1. Follow-up with perforator typist at [facility] as scheduled 2. Follow-up with [facility] outpatient alcohol rehab program 3. Please call [facility] and obtain a basic metabolic profile for lab work within the next 1 to 2 weeks Discharge Orders/Prescriptions Prescriptions: New spironolactone 50 mg Tablet 50 mg PO DAILY Qty: 30 0RF Continued ciprofloxacin HCl 500 mg tablet 500 mg PO BID Label Comments: TAKE 1 TABLET BY MOUTH 2 TIMES A DAY FOR 14 DAYS Referrals / Follow Up: NOT,DEFINED [Non-Staff] - [facility] - Within 1 Week Disposition Disposition (needs filled in before D/C Order can be placed): Home, Self Care Charges/Coding Visit Charges Inpatient E&M: 81245 Disch Hosp
[2022-05-11 11:20] VITALS: BP 138/84; PULSE 71; RESP 18; TEMP 36.9; O2SAT 97
--- NOTE | 2022-05-11 11:42 | CASEMGMT ---
Social Work SW received VM from Melissa Velázquez CM. Melissa inquired about discharge plan. SW called Melissa back and left message detailing pt discharge today and plan to f/u with [facility] Outpatient treatment in [place], which was noted in Pump Erector, Cricket's note. Left contact information should Melissa have further questions. EMMA Barrera
--- NOTE | 2022-05-11 12:01 | PHA.DC.MR ---
Pharmacy Service has performed discharge medication reconciliation for this patient. The patient's discharge medication list was reviewed for discrepancies and discrepancies were resolved. Medication education papers prepared, patient discharged before I was able to middle school guidance counselor. Home Medications ciprofloxacin HCl 500 mg tablet 500 mg PO BID recent paracentesis 05/08/22 spironolactone 50 mg tablet 50 mg PO DAILY #30 tabs 05/11/22
== END 2022-05-11 11:54 | disposition home or self-care (01) | DRG 775 ==
LOC: ED 15:48 → MS3 17:16
PROVIDERS: Admitting Provider Internal Medicine; Emergency Provider Student in an Organized Health Care Education/Training Program; Visit Provider Internal Medicine
DX: F10.239 Alcohol dependence with withdrawal, unspecified (principal); K70.31 Alcoholic cirrhosis of liver with ascites; K70.10 Alcoholic hepatitis without ascites; F17.210 Nicotine dependence, cigarettes, uncomplicated; K80.20 Calculus of gallbladder without cholecystitis without obstruction; K82.8 Other specified diseases of gallbladder; F12.90 Cannabis use, unspecified, uncomplicated; Y90.8 Blood alcohol level of 240 mg/100 ml or more
CPT/HCPCS: 74176; 80053; 80307; 82077; 83690; 85025; 85610; 94640; 99283; A4216